=== PATIENT | female | born 1995 | race Caucasian/White ===

== ENCOUNTER 2020-11-22 20:13 | Inpatient (IN) | payer OTHER, SELFPAY ==
[~2020-11-22 20:13] MED LIST: Iopamidol-370 76% 500 ML 1 ML ONE
[2020-11-22] MEDS ORDERED: Ketorolac Tromethamine 30 MG/ML VIAL ONE (20:25)
[2020-11-22] MEDS ORDERED: Fentanyl 100 MCG/2 ML VIAL ONE ×2 (20:25→21:27)
[2020-11-22] MEDS ORDERED: Ketamine 50 MG/ML (10ML VIAL) ONE (20:36)
[2020-11-22] MEDS ORDERED: Lidocaine 1% w/Epinephrine 1:100K 20 ML VIAL ONE (20:45)
[2020-11-22 21:25] LABS: #Lymphocytes 1.1 thou/uL (1.20-3.40); #Monocytes 0.4 thou/uL (0.11-0.59); #Neutrophils 12.1 thou/uL (1.40-6.50); %Basophils 0.3 % (0.0-1.0); %Eosinophils 0.2 % (0.0-10.0); %Lymphocytes 8.2 % (21.0-51.0); %Neutrophils 88.4 % (42.0-75.0); Hemoglobin 11.8 g/dL (12.0-16.0); Mean Corpuscular Hemoglobin 32.7 pg (27.0-31.0); Mean Corpuscular Volume 96.1 fL (78.0-98.0); Mean Platelet Volume 9.1 fL (7.4-10.4); Platelet Count 183 thou/uL (130-400); RBC Distribution Width 10.7 % (11.5-14.5); White Blood Cell (WBC) Count 13.7 thou/uL (4.8-10.8)
[2020-11-22 21:43] LABS: ALT (SGPT) 24 U/L (8-55); AST (SGOT) 24 U/L (5-34); Albumin 3.6 g/dL (3.5-5.0); Alkaline Phosphatase 45 U/L (40-110); Anion Gap 16 mmol/L (10-20); BUN (Urea Nitrogen) 12 mg/dL (7.0-18.7); Bilirubin, Total 0.3 mg/dL (0.2-1.2); CK (CPK) 178 U/L (29-168); Calc. Creatinine Clearance 0 mL/min (70-130); Calcium 7.6 mg/dL (7.8-10.44); Carbon Dioxide 18 mmol/L (22-29); Chloride 107 mmol/L (98-107); Globulin 1.9 g/dL (2.4-3.5); Glucose 153 mg/dL (70-105); Lipase 21 U/L (8-78); Magnesium 1.7 mg/dL (1.6-2.6); Potassium 3.9 mmol/L (3.5-5.1); Protein, Total 5.5 g/dL (6.0-8.3); Sodium 137 mmol/L (136-145)
[2020-11-22 22:03] LABS: CKMB 2.2 ng/mL (0-6.6)
[2020-11-23 00:45] VITALS: BMI 19.8
[2020-11-23] MEDS ORDERED: Dextrose 5% in Water 1,000 ML IV PRN (00:54)
[2020-11-23] MEDS ORDERED: hydrALAZINE 20 MG/ML VIAL SLOW IVP PRN (00:54)
[2020-11-23] MEDS ORDERED: traMADol HCl 50 MG TAB PO PRN (00:54)
[2020-11-23] MEDS ORDERED: Cyclobenzaprine 10 MG TAB PO PRN (00:54)
[2020-11-23] MEDS ORDERED: Ondansetron ODT 4 MG TAB PO PRN (00:54)
[2020-11-23] MEDS ORDERED: Dextrose 50% Abboject 50 ML SYRINGE SLOW IVP PRN (00:54)
[2020-11-23] MEDS ORDERED: Ondansetron PF 4 MG/2 ML Vial IVP PRN (00:54)
[2020-11-23] MEDS: traMADol HCl 50 MG TAB PO PRN ×2 (01:25→11:05)
[2020-11-23 02:14] LABS: Magnesium 1.7 mg/dL (1.6-2.6); Phosphorus 4.3 mg/dL (2.3-4.7)
[2020-11-23] MEDS: Morphine 2 MG/ML VIAL SLOW IVP PRN ×2 (02:54→11:22)
[2020-11-23] MEDS: Acetaminophen 500 MG TAB PO SCH ×4 (05:59→20:23)
[2020-11-23] MEDS: Ibuprofen 200 MG TAB PO SCH ×3 (05:59→22:45)
[2020-11-23 06:25] LABS: #Lymphocytes 1.5 thou/uL (1.20-3.40); #Monocytes 0.7 thou/uL (0.11-0.59); #Neutrophils 9.1 thou/uL (1.40-6.50); %Basophils 0.3 % (0.0-1.0); %Eosinophils 0.4 % (0.0-10.0); %Monocytes 5.7 % (0.0-10.0); %Neutrophils 80.7 % (42.0-75.0); Hemoglobin 12.4 g/dL (12.0-16.0); Mean Corpuscular HGB CONC 34.5 g/dL (32.0-36.0); Mean Corpuscular Hemoglobin 32.8 pg (27.0-31.0); Mean Corpuscular Volume 95.1 fL (78.0-98.0); Mean Platelet Volume 8.9 fL (7.4-10.4); Platelet Count 156 thou/uL (130-400); RBC Distribution Width 10.8 % (11.5-14.5); Red Blood Cell (RBC) Count 3.79 mill/uL (4.20-5.40); White Blood Cell (WBC) Count 11.3 thou/uL (4.8-10.8)
[2020-11-23 06:44] LABS: Anion Gap 13 mmol/L (10-20); BUN (Urea Nitrogen) 10 mg/dL (7.0-18.7); Calc. Creatinine Clearance 98 mL/min (70-130); Calcium 8.3 mg/dL (7.8-10.44); Carbon Dioxide 22 mmol/L (22-29); Chloride 107 mmol/L (98-107); Glucose 88 mg/dL (70-105); Magnesium 1.8 mg/dL (1.6-2.6); Phosphorus 4.1 mg/dL (2.3-4.7); Potassium 4.5 mmol/L (3.5-5.1); Sodium 137 mmol/L (136-145)
[2020-11-23] MEDS: Gabapentin 300 MG CAP PO SCH ×2 (08:54→20:24)
[2020-11-23] MEDS: Famotidine 20 MG TAB PO SCH ×2 (08:54→20:22)
[2020-11-23] MEDS ORDERED: Acetaminophen/Codeine 30-300mg Tablet PO PRN (14:01)
[2020-11-23] MEDS ORDERED: Magnesium Sulfate 3 GM in Sodium Chloride 0.9% 250 ML 250 ML IVPB SCH (14:15)
[2020-11-23] MEDS: traMADol HCl 50 MG TAB PO SCH ×2 (15:13→20:25)
[2020-11-24] MEDS: Acetaminophen 500 MG TAB PO SCH ×4 (02:41→20:37)
[2020-11-24] MEDS: traMADol HCl 50 MG TAB PO SCH ×4 (02:42→20:38)
[2020-11-24 05:53] LABS: Troponin I 0.257 ng/mL (< 0.028)
[2020-11-24 06:11] LABS: Anion Gap 12 mmol/L (10-20); BUN (Urea Nitrogen) 6 mg/dL (7.0-18.7); Calc. Creatinine Clearance 116 mL/min (70-130); Calcium 7.9 mg/dL (7.8-10.44); Carbon Dioxide 20 mmol/L (22-29); Chloride 108 mmol/L (98-107); Glucose 81 mg/dL (70-105); Phosphorus 2.8 mg/dL (2.3-4.7); Potassium 4.2 mmol/L (3.5-5.1); Sodium 136 mmol/L (136-145)
[2020-11-24] MEDS: Ibuprofen 200 MG TAB PO SCH ×3 (07:01→21:17)
[2020-11-24] MEDS: Gabapentin 300 MG CAP PO SCH ×2 (08:32→21:17)
[2020-11-25] MEDS: Acetaminophen 500 MG TAB PO SCH ×2 (03:33→08:35)
[2020-11-25] MEDS: traMADol HCl 50 MG TAB PO SCH ×2 (03:34→08:36)
[2020-11-25] MEDS: Ibuprofen 200 MG TAB PO SCH (05:34)
[2020-11-25 08:21] VITALS: BP 119/79; TEMP 98.3
[2020-11-25] MEDS: Gabapentin 300 MG CAP PO SCH (10:18)
== END 2020-11-25 10:35 | disposition home or self-care (01) | DRG 200 ==
LOC: ERS 20:13 → SURG B 22:35
PROVIDERS: ADMIT Surgery; ATTEND Surgery
PROC: 0W9B00Z Drainage of Left Pleural Cavity with Drainage Device, Open Approach (ICD-10-PCS; principal; 2020-11-23)
DX: S27.2XXA Traumatic hemopneumothorax, initial encounter (principal); S22.32XA Fracture of one rib, left side, initial encounter for closed fracture; S27.321A Contusion of lung, unilateral, initial encounter; W55.12XA Struck by horse, initial encounter; R06.89 Other abnormalities of breathing
CPT/HCPCS: 36415; 71045; 74177; 80048; 82533; 82550; 82553; 83690; 83735; 84100; 84484; 85025; 93005; 93306; 94640; G0390; J1885; J2270; J3010; J3475; J7050; J7620; Q9967